=== PATIENT | male | born 1975 | race African-American/Black ===

== ENCOUNTER 2023-09-21 21:12 | Emergency (ER) | payer OTHER ==
[~2023-09-21] VITALS: Ht 167.6 cm; Wt 81.0 kg
[2023-09-22] MEDS ORDERED: IBUP-1455 PO (00:54)
[2023-09-22 04:00] VITALS: BP 124/68; PULSE 64; RESP 16; TEMP 98; O2SAT 97
== END 2023-09-22 04:38 | disposition home or self-care (01) ==
LOC: ER 21:12
DX: M71.22 Synovial cyst of popliteal space [Baker], left knee (principal); I10 Essential (primary) hypertension; Z87.891 Personal history of nicotine dependence
CPT/HCPCS: 93971

== ENCOUNTER 2024-11-07 23:20 | Emergency (ER) | payer OTHER ==
[~2024-11-07] VITALS: Ht 167.6 cm; Wt 89.2 kg
[~2024-11-07 23:20] MED LIST: IBUP-1455 PO
[2024-11-07] MEDS: SODIUM CHLORIDE 0.9% 1,000 ML IV ONE (23:42)
[2024-11-07] MEDS: diphenhdrAMINE HCL 50 MG/1 ML VL IV ONE (23:43)
[2024-11-07] MEDS: FAMOTIDINE (10MG/ML) 2ML VL IV ONE (23:43)
[2024-11-08 01:50] VITALS: BP 111/71; PULSE 72; RESP 18; TEMP 97.6; O2SAT 96
[2024-11-08] MEDS ORDERED: FAMO20TA10 PO (01:54)
[2024-11-08] MEDS ORDERED: METH4PAK PO (01:54)
[2024-11-08] MEDS ORDERED: DIPH25CA66 PO (01:54)
[2024-11-08] MEDS ORDERED: AML5T PO (01:54)
--- NOTE | 2024-11-08 01:54 | ED.PDOC ---
HPI Allergic reaction HPI Comments PT PRESENTED TO THE ED CC ALLERGIC REACTION. PT STATES THIS BEGAN AROUND 2100 AFTER EATING FRIED RICE AND NOODLES IN THE MORNING. PT ABLE TO SPEK IN COMPLETE SENTENCES, NO CP, NO DIZZINESS, AND NO SOB IS REPORTED. PT A&OX4, GCS 15, ABULATORY. PMH: DM II, HT Chief Complaint: Allergic Reaction Time Seen by MD: 23:29 Primary Care Provider: Az Iyer Reviewed Notes: Nurses Notes, Medications, Allergies Allergies: Coded Allergies: NO KNOWN ALLERGIES (Unverified , 02/20/14) Home Meds Active Scripts Ibuprofen Micronized (Ibuprofen) 800 Mg Tab, 800 MG PO Q8HP PRN, #30 TAB Prov:ARTURNANDO Ary PAC 09/22/23 Discontinued Scripts Amlodipine Besylate (NORVASC TABLET) 5 Mg Tb, 1 TAB PO DAILY for 10 Days, #10 TAB STOP YOUR LISINOPRIL START AMLODIPINE Prov:PRASHANTH HDZ LAB SCIENTIST 11/08/24 Famotidine (PEPCID TABLET) 20 Mg Tb, 1 TAB PO BID for 6 Days, #12 TAB Prov:PRASHANTH HDZ LAB SCIENTIST 11/08/24 Methylprednisolone (Medrol Dosepak) 4 Mg You, 4 MG PO UD for 6 Days, #21 TAB UAD Prov:PRASHANTH HDZ LAB SCIENTIST 25 Diphenhydramine Hcl (Benadryl Allergy) 25 Mg Cap, 1 CAP PO BID PRN for 5 Days, #10 CAP Prov:PRASHANTH HDZ LAB SCIENTIST 11/08/24 Information Source: Patient Mode of Arrival: Ambulatory Past Medical History PAST MEDICAL HISTORY: HTN Surgical History: Denies all surgeries Family History Family History: Unobtainable Social History Smoker: Non-Smoker, Quit Less Than 1 Year, Cigarettes Alcohol: Occasionally Drugs: Denies Drug Use Lives In: Home Physical Exam General Appearance: No Apparent Distress, Normal HEENT: Head (Bottom lip edema), Pharynx Normal, TMs Normal Neck: Full Range of Motion, Non-Tender Respiratory: Lungs Clear, No Respiratory Distress, Normal Breath Sounds Cardiovascular: No Edema, No JVD, No Murmur, No Gallop, Normal Peripheral Pulses, Regular Rate/Rhythm Breast Exam: Deferred Gastrointestinal: No Organomegaly, Non Tender, No Pulsatile Mass, Normal Bowel Sounds, Soft Genitalia: Deferred Pelvic: Deferred Rectal: Deferred Extremities: Normal capillary refill, No pedal edema Musculoskeletal : Apperance: Normal Neurologic: Alert, No Motor Deficits, Normal Affect, Normal Mood, No Sensory Deficits Cerebellar Function: Normal Reflexes: NOT DONE Skin: Dry, Normal Color, Warm Lymphatic: No Adenopathy Was a procedure done? Was a procedure done?: No Differential diagnosis (all) Differential Diagnosis: Anaphylaxis, Angioedema, Contact Dermatitis, Drug Reaction, Hypotension, Urticaria X-Ray, Labs, Meds, VS Vital Signs Date Time Temp Pulse Resp B/P (MAP) Pulse Ox O2 Delivery O2 Flow Rate FiO2 11/08/24 01:50 Room Air* 0 21 11/08/24 01:50 97.6 72 18 111/71 (84) 96 97.6 11/07/24 23:22 97.6 80 16 105/70 98 97.6 X-Ray, Labs, Meds, VS Comment Patient given Solu-Medrol 125 IV push, Benadryl 25 mg IV push, Pepcid 20 mg IV push in NS 1 L bolus reports improvement in symptoms requesting discharge at this time. Advised to follow up with his PCP in 2-3 days as necessary. Script trial of Norvasc advised to stop lisinopril. Advised to rest increase p.o. fluids with electrolytes ER return precautions given patient indicates understanding agrees with discharge plan of care. Time of 1ST Reevaluation: 23:29 Reevaluation 1ST: Unchanged Time of 2ND Reevaluation: 01:50 Reevaluation 2ND: Improved Patient Education/Counseling: Diagnosis, Treatment, Prognosis, Need For Follow Up Family Education/Counseling: Diagnosis, Treatment, Prognosis, Need For Follow Up SEPSIS Sepsis Screen Date sepsis recognized/suspect: Nov 07, 2024 Time Sepsis recognized/suspect: 2321 Recent Procedure: No On Antibiotic Therapy: No Respiratory Rate >20: No Heart Rate >90: No Temp<36 C (96.8 F) or >38.3 C: No SBP <90 or MAP <65 mmHG: No New Acute Mental Status Change: No Is the patient on CPAP, BIPAP,: No Vital Signs Date Time Temp Pulse Resp B/P (MAP) Pulse Ox O2 Delivery O2 Flow Rate FiO2 11/08/24 01:50 Room Air* 0 21 11/08/24 01:50 97.6 72 18 111/71 (84) 96 97.6 11/07/24 23:22 97.6 80 16 105/70 98 97.6 Departure 1 Departure Time of Disposition: 01:51 Impression: Primary Impression: Allergic reaction caused by a drug Qualified Codes: T78.40XA - Allergy, unspecified, initial encounter Disposition: 01 HOME / SELF CARE / HOMELESS Condition: Stable Discharged With: Friend Critical Care Note Critical Care Time?: No Stability Stability form required: PRASHANTH Campbell Nov 08, 2024 01:54
== END 2024-11-08 02:09 | disposition home or self-care (01) ==
LOC: ER 23:20
DX: R21 Rash and other nonspecific skin eruption (principal); T50.905A Adverse effect of unspecified drugs, medicaments and biological substances, initial encounter; I10 Essential (primary) hypertension; Z79.899 Other long term (current) drug therapy; Y92.89 Other specified places as the place of occurrence of the external cause
CPT/HCPCS: 96361; 96374; 96375; 99284; J1100; J1200; J3490; J7030